=== PATIENT | female | born 1960 | race Caucasian/White ===

== ENCOUNTER 2016-11-28 23:37 | Inpatient (IN) | payer OTHER ==
[~2016-11-28] VITALS: Ht 172.7 cm; Wt 62.6 kg
--- NOTE | ~2016-11-28 | EKG ---
[place] [address] [facility] [place] [address] ELECTROCARDIOGRAM REPORT Name: MANJU WOODARD Room #: 442-P ADM IN M.R.#: [id number] Admission: 11/29/16 Attend Phys: Garcia Aggarwal MD Discharge: Date of : 58 Report #: [id number] THIS REPORT FOR: //name// [facility] ED Test Date: 2016-11-28 Test Time: 23:56:26 Pat Name: MANJU WOODARD Department: Room: [facility] Gender: F Head Rose Grower: lindsay : 1960 Requested By: Elma Garcia Order Number: [id number] MD: Elliott Shah Measurements Intervals [place] Rate: 85 P: 82 [place]: 186 QRS: 82 QRSD: 112 T: 74 QT: 389 QTc: 463 Interpretive Statements Sinus rhythm Incomplete right bundle branch block Consider left ventricular hypertrophy No previous ECG available for comparison Electronically Signed On 11-29-2016 8:52:47 CDT by Elliott Shah [email or web address] <ELECTRONICALLY SIGNED> By: Elliott Shah MD, [facility] 11/29/16 0852 D: 06/2355 54 Elliott Shah MD, FACC /EPI
[2016-11-28 23:38] VITALS: BP 183/96
[2016-11-28] MEDS ORDERED: HUMALOG100 UNIT/1 (23:42)
[2016-11-28] MEDS ORDERED: LISINOPRIL10 MG PO (23:42)
[2016-11-28] MEDS ORDERED: LEVEMIR SUBQ ×2 (23:43)
[2016-11-28] MEDS ORDERED: GYNODIOL0.5 MG PO (23:43)
[2016-11-28] MEDS ORDERED: ASPIR 8181 MG PO (23:44)
[2016-11-28] MEDS ORDERED: PROGESTERONE100 MG (23:44)
[2016-11-28 23:58] LABS: ABSOLUTE NEUTROPHILS 5.3 thou/uL (1.4-8.2); BASOPHILS 0.7 % (0.0-2.0); EOSINOPHILS 0.9 % (0.0-3.0); HEMATOCRIT 43.8 % (37.0-47.0); HEMOGLOBIN 14.9 gm/dL (12.0-15.0); LYMPHOCYTES 30.1 % (24.0-44.0); MCH 30.7 pg (26.0-34.0); MCHC 34.1 g/dL (28.0-37.0); MCV 90.2 fL (80.0-100.0); PLATELET COUNT 219 thou/uL (150-400); POLYS 62.3 % (36.0-66.0); RBC 4.86 mil/uL (4.20-5.00); RDW 13.1 % (10.5-14.5); WBC 8.5 thou/uL (4.0-11.0)
[2016-11-29 00:02] LABS: ANION GAP 11 mmol/L (7-16); BUN 15 mg/dL (7-18); CALCIUM 8.9 mg/dL (8.5-10.1); CHLORIDE 102 mmol/L (98-107); CO2 26 mmol/L (21-32); CREATININE 0.8 mg/dL (0.6-1.0); GLUCOSE 230 mg/dL (74-106); POTASSIUM 3.3 mmol/L (3.5-5.1); SODIUM 139 mmol/L (136-145)
[2016-11-29 00:10] LABS: ALBUMIN 4.1 g/dL (3.4-5.0); ALKALINE PHOSPHATASE 62 U/L (46-116); DIRECT BILIRUBIN 0.2 mg/dL (<0.1-0.3); SGOT 17 U/L (15-37); SGPT 23 U/L (30-65); TOTAL BILIRUBIN 1.2 mg/dL (<0.1-1.0); TOTAL PROTEIN 7.4 g/dL (6.4-8.2); TROPONIN-I < 0.04 ng/mL (<0.04-0.07)
[2016-11-29 00:14] LABS: MANUAL DIFF NO
[2016-11-29 01:09] VITALS: BP 126/73
[2016-11-29 01:19] VITALS: BP 145/88
[2016-11-29 04:15] VITALS: BP 116/69
[2016-11-29 04:25] VITALS: BP 145/86
[2016-11-29 08:00] VITALS: BP 126/59
[2016-11-29] MEDS ORDERED: ANTIVERT25 MG PO (10:25)
[2016-11-29 10:31] VITALS: BP 145/86
== END 2016-11-29 10:58 | disposition home or self-care (01) | DRG 149 ==
LOC: ER 23:37 → 4S 11-29 00:39 → EROBS 11-29 00:39 → 4S 11-29 01:05
PROVIDERS: Emergency Medicine
DX: H81.10 Benign paroxysmal vertigo, unspecified ear (principal); I10 Essential (primary) hypertension; E87.6 Hypokalemia; E11.65 Type 2 diabetes mellitus with hyperglycemia; Z79.4 Long term (current) use of insulin; Z88.1 Allergy status to other antibiotic agents; Z79.82 Long term (current) use of aspirin; Z79.899 Other long term (current) drug therapy
CPT/HCPCS: 10100

== ENCOUNTER → 2017-03-09 | Outpatient (CLI) | payer OTHER ==
[~2017-03-09] MED LIST: ANTIVERT25 MG PO; ASPIR 8181 MG PO; GYNODIOL0.5 MG PO; HUMALOG100 UNIT/1; LEVEMIR SUBQ; LISINOPRIL10 MG PO; PROGESTERONE100 MG
== END ==
LOC: RAD 11:21
DX: Z12.31 Encounter for screening mammogram for malignant neoplasm of breast (principal)

== ENCOUNTER → 2019-04-04 | Outpatient (CLI) | payer OTHER ==
[~2019-04-04] VITALS: Ht 172.7 cm; Wt 61.7 kg
[~2019-04-04] MED LIST changes: +ADULT ASPIRIN R81 MG PO; +ADVIL200 M1 PO; +FISH OIL 1,2001 EACH PO; -HUMALOG100 UNIT/1; +HUMALOG100 UNIT/1 SUBQ; +LANTUS SUBQ; +MEDROXYPROGEST2.5 MG PO
--- NOTE | 2019-04-11 09:30 | P ---
[facility] [place] [address] PROCEDURE REPORT Name: WOODARDMANJU L [facility] [id number] Admission: 04/04/19 Attend Phys: Amadeo Arnold Discharge: Date of : 58 Report #: [id number] THIS REPORT FOR: //name// CC: Amadeo Rojas MD DATE OF SERVICE: 04/04/2019 PROCEDURE PERFORMED: Colonoscopy. HISTORY OF PRESENT ILLNESS: The patient is a 59-year-old female with a history of colon polyps 5 years ago. She is here for routine 5-year followup. Denies any symptoms. No family history of colon cancer. DESCRIPTION OF PROCEDURE: The risks and benefits of the procedure were explained to the patient, those risks including but not limited to bleeding, perforation and the risk of sedation. She understood these risks and gave informed consent. Sedation was given using propofol per anesthesia. Next, a digital rectal exam was initially performed, which was normal. Next, using a standard Olympus colonoscope, the scope was placed in the patient's anus and advanced under direct vision to the cecum. The overall prep was excellent. Cecum and ileocecal valve were normal in appearance. Terminal ileum was intubated and normal in appearance. Ascending, transverse, descending and sigmoid colon were all normal. The rectal mucosa was normal. On retroflexion, no abnormalities were noted. The scope was then withdrawn and the procedure terminated. The patient tolerated the procedure well. IMPRESSION: Normal colonoscopy. RECOMMENDATIONS: Repeat colonoscopy in 10 years. Thank you for allowing me to participate in her care. <ELECTRONICALLY SIGNED> By: Amadeo Avendano MD 04/11/19 0930 [id number] [id number] Amadeo Avendano MD /nt
== END | disposition home or self-care (01) ==
LOC: GI 07:12
DX: Z12.11 Encounter for screening for malignant neoplasm of colon (principal); Z86.010 Personal history of colon polyps; I10 Essential (primary) hypertension; E11.9 Type 2 diabetes mellitus without complications; Z98.890 Other specified postprocedural states; Z79.4 Long term (current) use of insulin; Z79.899 Other long term (current) drug therapy; Z88.8 Allergy status to other drugs, medicaments and biological substances; Z79.82 Long term (current) use of aspirin
CPT/HCPCS: 62110; 62900

== ENCOUNTER → 2019-11-09 | Outpatient (CLI) | payer OTHER | LOC: ULTRA 12:44 | DX: R22.31 Localized swelling, mass and lump, right upper limb (principal); M79.89 Other specified soft tissue disorders ==

== ENCOUNTER → 2019-11-30 | Outpatient (CLI) | payer OTHER | LOC: RAD 10:18 | PROVIDERS: ATTEND Nurse Practitioner | DX: Z12.31 Encounter for screening mammogram for malignant neoplasm of breast (principal); N64.89 Other specified disorders of breast ==

== ENCOUNTER → 2019-12-06 | Outpatient (CLI) | payer OTHER ==
[2019-12-06 16:45] LABS: ALBUMIN 4.2 g/dL (3.4-5.0); ANION GAP 4 mmol/L (7-16); BUN 18 mg/dL (7-18); CHLORIDE 105 mmol/L (98-107); CHOLESTEROL 198 mg/dL (<200); CO2 32 mmol/L (21-32); CREATININE 0.8 mg/dL (0.6-1.0); GLUCOSE 113 mg/dL (74-106); HDL CHOLESTEROL 100 mg/dL (>40); LDL CHOLESTEROL 90 mg/dL (<100); SGOT 16 U/L (15-37); SGPT 22 U/L (30-65); SODIUM 141 mmol/L (136-145); TOTAL BILIRUBIN 1.2 mg/dL (0.2-1.0); TOTAL PROTEIN 7.4 g/dL (6.4-8.2); TRIGLYCERIDE 41 mg/dL (<150); VLDL 8 mg/dL (<40)
[2019-12-07 04:06] LABS: GLYCOHEMOGLOBIN (HGB A1C) 7.8 % (4.8-5.6)
== END ==
LOC: LAB 15:24
PROVIDERS: ATTEND Internal Medicine
DX: I10 Essential (primary) hypertension (principal); E10.9 Type 1 diabetes mellitus without complications

== ENCOUNTER 2020-04-02 12:02 | Emergency (ER) | payer OTHER ==
[~2020-04-02] VITALS: Ht 172.7 cm; Wt 62.6 kg
[2020-04-02 12:39] LABS: ABSOLUTE NEUTROPHILS 5.6 thou/uL (1.4-8.2); BASOPHILS 0.5 % (0.0-2.0); EOSINOPHILS 0.7 % (0.0-3.0); HEMATOCRIT 45.6 % (37.0-47.0); HEMOGLOBIN 14.9 gm/dL (12.0-15.0); LYMPHOCYTES 20.2 % (24.0-44.0); MCH 30.3 pg (26.0-34.0); MCHC 32.6 g/dL (28.0-37.0); MCV 92.8 fL (80.0-100.0); MONOCYTES 7.7 % (1.0-8.0); PLATELET COUNT 306 thou/uL (150-400); POLYS 70.9 % (36.0-66.0); RBC 4.92 mil/uL (4.20-5.00); RDW 13.5 % (10.5-14.5); WBC 7.9 thou/uL (4.0-11.0)
[2020-04-02 12:43] LABS: ANION GAP 9 mmol/L (7-16); BUN 11 mg/dL (7-18); CALCIUM 9.4 mg/dL (8.5-10.1); CHLORIDE 106 mmol/L (98-107); CO2 29 mmol/L (21-32); CREATININE 0.9 mg/dL (0.6-1.0); GLUCOSE 123 mg/dL (74-106); POTASSIUM 3.8 mmol/L (3.5-5.1); SODIUM 144 mmol/L (136-145)
[2020-04-02 12:52] LABS: TROPONIN-I <0.06 ng/mL (<0.06)
--- NOTE | 2020-04-02 12:57 | EKG ---
[facility] [place] [address] ELECTROCARDIOGRAM REPORT Name: MANJU WOODARD Room #: [facility].#: [id number] Admission: Attend Phys: Discharge: Date of : 58 Report #: [id number] THIS REPORT FOR: cc: Ranjith Rojas MD, Rene P. MD Lundgren,Elliott Blake MD [facility] ~ THIS REPORT FOR: //name// [facility] ED Test Date: 2020-04-02 Test Time: 12:07:13 Pat Name: MANJU WOODARD Department: Room: Gender: F Burn Crew Member: [facility] : 1960 Requested By: Shay Pro Order Number: [id number] MD: Elliott Shah Measurements Intervals [place] Rate: 112 P: 84 DC: 135 QRS: 246 QRSD: 95 T: 69 QT: 312 QTc: 426 Interpretive Statements Sinus tachycardia Right superior axis Probable RVH w/ secondary repol abnormality Compared to ECG 11/28/2016 23:56:26 Incomplete right bundle-branch block no longer present Electronically Signed On 04-02-2020 12:57:48 CDT by Elliott Shah [email or web address] <ELECTRONICALLY SIGNED> By: Elliott Shah MD, FAC 04/02/20 1257 1207 1207 Elliott Shah MD, [facility] /EPI
[2020-04-02 13:38] LABS: URINE BILIRUBIN NEGATIVE (Negative); URINE BLOOD TRACE (Negative); URINE CLARITY CLEAR; URINE COLOR YELLOW; URINE GLUCOSE-RANDOM* NEGATIVE (Negative); URINE KETONES NEGATIVE (Negative); URINE LEUKOCYTES-REFLEX NEGATIVE (Negative); URINE NITRITE-REFLEX NEGATIVE (Negative); URINE PROTEIN (DIPSTICK) NEGATIVE (Negative); URINE SPECIFIC GRAVITY <= 1.005 (1.005-1.035); URINE UROBILINOGEN 0.2 E.U./dl (0.2-1.0)
[2020-04-02] MEDS ORDERED: ULTRAM 50MG TAB50 MG PO ×2 (14:41→15:07)
[2020-04-02] MEDS ORDERED: ZOFRAN ODT4 MG PO (14:41)
[2020-04-02] MEDS ORDERED: PROTONIX40 MG PO (14:41)
[2020-04-02 15:05] VITALS: BP 137/81
== END 2020-04-02 15:12 | disposition home or self-care (01) ==
LOC: ER 12:02
PROVIDERS: Emergency Medicine
DX: I88.0 Nonspecific mesenteric lymphadenitis (principal); I10 Essential (primary) hypertension; E11.9 Type 2 diabetes mellitus without complications; Z79.899 Other long term (current) drug therapy; Z79.4 Long term (current) use of insulin; Z88.1 Allergy status to other antibiotic agents

== ENCOUNTER → 2020-04-17 | Outpatient (CLI) | payer OTHER ==
[~2020-04-17] MED LIST changes: +PROTONIX40 MG PO; +ULTRAM 50MG TAB50 MG PO; +ZOFRAN ODT4 MG PO
== END ==
LOC: RAD 10:44
PROVIDERS: ATTEND Nurse Practitioner
DX: S82.891A Other fracture of right lower leg, initial encounter for closed fracture (principal); S93.401A Sprain of unspecified ligament of right ankle, initial encounter; X58.XXXA Exposure to other specified factors, initial encounter; Y93.89 Activity, other specified; Y92.89 Other specified places as the place of occurrence of the external cause; Y99.8 Other external cause status

== ENCOUNTER → 2020-05-26 | Outpatient (CLI) | payer OTHER | LOC: LAB 11:57 | PROVIDERS: ATTEND Nurse Practitioner | DX: U07.1 COVID-19 (principal) ==